=== PATIENT | female | born 1985 | race American Indian/Alaskan Native ===

== ENCOUNTER 2019-03-28 22:59 | Emergency (ER) | payer SELFPAY ==
--- NOTE | 2019-03-28 23:27 | EDM.PDOC ---
ED HPI GENERAL MEDICAL PROBLEM - General Chief Complaint: ENT Problem Stated Complaint: THROAT FADING VOICE Time Seen by Provider: 03/28/19 23:20 Source of Information: Reports: Patient, RN Notes Reviewed History Limitations: Reports: No Limitations - History of Present Illness INITIAL COMMENTS - FREE TEXT/NARRATIVE: C/o cough sore throat and hoarseness for approximately 10 days, cough productive at times, no fever. Intermittent ear pain. Trying salt water gargles. 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 [No Known Home Meds] 03/28/19 [History] ED ROS ENT - Review of Systems Review Of Systems: Comprehensive ROS is negative, except as noted in HPI. ED EXAM, ENT - Physical Exam Exam: See Below Exam Limited By: No Limitations General Appearance: Alert, Mild Distress Eye Exam: Bilateral Eye: EOMI Ears: Normal External Exam, TM Fluid. No: TM Erythema Nose: Normal Inspection Mouth/Throat: Pharyngeal Erythema (mild). No: Uvular Deviation Head: Atraumatic, Normocephalic Neck: Normal Inspection, Full Range of Motion Respiratory/Chest: No Respiratory Distress, Lungs Clear, Normal Breath Sounds Cardiovascular: Normal Peripheral Pulses, Regular Rate, Rhythm GI/Abdominal: Normal Bowel Sounds, Soft Back: Full Range of Motion Extremities: Normal Inspection Neurological: Alert, Oriented Psychiatric: Normal Affect Skin: Warm, Dry, Intact, Normal Color Course - Vital Signs Last Recorded V/S: Last Vital Signs Temp 97.5 F 03/28/19 23:14 Pulse 114 H 03/28/19 23:14 Resp 18 03/28/19 23:14 BP 136/82 03/28/19 23:14 Pulse Ox 98 03/28/19 23:14 - Orders/Labs/Meds Orders: Active Orders 24 hr Category Date Time Status CULTURE STREP A CONFIRMATION [] Stat Lab 03/28/19 23:11 Results STREP SCRN A RAPID W CULT CONF [] Stat Lab 03/28/19 23:11 Results Departure - Departure Time of Disposition: 23:28 Disposition: Home, Self-Care 01 Condition: Good Clinical Impression: Bronchitis - Discharge Information *PRESCRIPTION DRUG MONITORING PROGRAM REVIEWED*: No *COPY OF PRESCRIPTION DRUG MONITORING REPORT IN PATIENT BOOGIE: No Instructions: Upper Respiratory Infection, Adult, [id number], Acute Bronchitis, Adult Forms: ED Department Discharge Additional Instructions: limit smoking increase fluids humidification gargles over counter cough and cold per label instruction vocal rest as much as possible alternate tylenol and ibuprofen every 4 hours as needed follow up if symptoms worsen, Sepsis Event Note - Evaluation Sepsis Screening Result: No Definite Risk - Focused Exam Vital Signs: Vital Signs Temp Pulse Resp BP Pulse Ox 03/28/19 23:14 97.5 F 114 H 18 136/82 98 Date Exam was Performed: 03/28/19 Time Exam was Performed: 23:37 - My Orders Last 24 Hours: My Active Orders 03/28/19 23:11 CULTURE STREP A CONFIRMATION [RM] Stat STREP SCRN A RAPID W CULT CONF [RM] Stat - Assessment/Plan Last 24 Hours: My Active Orders 03/28/19 23:11 CULTURE STREP A CONFIRMATION [RM] Stat STREP SCRN A RAPID W CULT CONF [RM] Stat
== END 2019-03-28 23:41 | disposition home or self-care (01) ==
LOC: DL.ED 22:59
DX: J40 Bronchitis, not specified as acute or chronic (principal)
CPT/HCPCS: 87081; 87430; 87804; 99283